=== PATIENT | male | born 1965 | race Caucasian/White ===

== ENCOUNTER 2017-01-22 13:46 | Emergency (ER) | payer SELFPAY ==
[~2017-01-22] VITALS: Ht 172.7 cm; Wt 99.8 kg
[2017-01-22 14:12] LABS: BASO % 0.6 % (0.0-1.0); EOS # 0.3 K/mm3 (0.0-0.50); EOS % 5.8 % (0.0-3.0); LARGE UNSTAINED CELL # 0.1 K/mm3 (0.0-0.4); LARGE UNSTAINED CELL % 1.9 % (0.0-4.0); LYMPH # 1.1 K/mm3 (1.5-4.5); LYMPH % 18.4 % (24.0-44.0); MEAN CORPUSCULAR HEMOGLOBIN 29.4 pg (27.0-33.0); MEAN CORPUSCULAR HGB CONC 34.4 g/dl (32.0-36.5); MEAN CORPUSCULAR VOLUME 85.5 fl (80.0-96.0); MONO # 0.3 K/mm3 (0.0-0.8); MONO % 5.9 % (0.0-5.0); NEUTROPHILS # 3.8 K/mm3 (1.8-7.7); NEUTROPHILS % 67.4 % (36.0-66.0); PLATELET COUNT, AUTOMATED 172 k/mm3 (150-450); RED CELL DISTRIBUTION WIDTH 13.3 % (11.5-14.5); WHITE BLOOD COUNT 5.6 K/mm3 (4.0-10.0)
[2017-01-22] MEDS ORDERED: ASPIRIN 81 MG CHEW TABLET PO ONE (14:30)
[2017-01-22] MEDS ORDERED: ASPIRIN 325 MG TAB PO ONE (14:30)
[2017-01-22] MEDS ORDERED: NS 500 ML IV ONE (14:30)
[2017-01-22 14:39] LABS: ANION GAP 7 MEQ/L (8-16); BLOOD UREA NITROGEN 13 MG/DL (7-18); CALCIUM LEVEL 8.4 MG/DL (8.5-10.1); CARBON DIOXIDE LEVEL 28 MEQ/L (21-32); CHLORIDE LEVEL 107 MEQ/L (98-107); CREATININE FOR GFR 0.86 MG/DL (0.70-1.30); GLOMERULAR FILTRATION RATE > 60.0 (>56); GLUCOSE, FASTING 96 MG/DL (70-105); POTASSIUM SERUM 3.9 MEQ/L (3.5-5.1); SODIUM LEVEL 142 MEQ/L (136-145)
[2017-01-22 14:46] LABS: THYROXINE (T4) 7.6 UG/DL (4.5-12.0)
[2017-01-22 19:30] VITALS: BP 126/68
--- NOTE | 2017-01-23 08:07 | REP ---
CHEST, TWO VIEWS: HISTORY: Chest pain. COMPARISON: None. FINDINGS: The superior mediastinal structures are midline. The cardiac silhouette is unremarkable in size, shape and position. The diaphragmatic surfaces of the lungs are regular and the costophrenic angles are clear. The pulmonary finnegan are clear. The imaged osseous structures are intact. IMPRESSION: There is no acute cardiopulmonary disease. Signed by Esteban Roth DO 01/23/2017 09:55 A
--- NOTE | 2017-01-23 14:43 | ECGEPIP ---
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
--- NOTE | 2017-01-24 06:36 | ECGEPIP ---
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
== END 2017-01-22 19:40 | disposition home or self-care (01) ==
LOC: M ED 14:25
DX: R07.89 Other chest pain (principal); R55 Syncope and collapse; F41.9 Anxiety disorder, unspecified; I10 Essential (primary) hypertension; E78.5 Hyperlipidemia, unspecified; F17.200 Nicotine dependence, unspecified, uncomplicated

== ENCOUNTER → 2018-07-08 | Outpatient (REF) | payer BC ==
[2018-07-08 17:59] LABS: BASO % 0.4 % (0.0-1.0); EOS # 0.1 10^3/uL (0.0-0.50); EOS % 2.2 % (0.0-3.0); HEMATOCRIT 46.5 % (42.0-52.0); HEMOGLOBIN 15.2 g/dl (13.5-17.5); IMMATURE GRANULOCYTE % 0.2 % (0-3.0); LYMPH # 1.3 10^3/uL (1.5-4.5); LYMPH % 27.2 % (24.0-44.0); MEAN CORPUSCULAR HEMOGLOBIN 28.3 pg (27.0-33.0); MEAN CORPUSCULAR HGB CONC 32.7 g/dl (32.0-36.5); MEAN CORPUSCULAR VOLUME 86.4 fl (80.0-96.0); MONO # 0.5 10^3/uL (0.0-0.8); MONO % 9.7 % (0.0-5.0); NEUTROPHILS % 60.3 % (36.0-66.0); PLATELET COUNT, AUTOMATED 192 10^3/uL (150-450); RED BLOOD COUNT 5.38 10^6/uL (4.30-6.10); RED CELL DISTRIBUTION WIDTH 13.7 % (11.5-14.5); WHITE BLOOD COUNT 4.9 10^3/uL (4.0-10.0)
[2018-07-08 18:23] LABS: ALBUMIN 3.8 GM/DL (3.2-5.2); ALBUMIN/GLOBULIN RATIO 0.93 (1.00-1.93); ALKALINE PHOSPHATASE 80 U/L (45-117); ALT/SGPT 64 U/L (12-78); ANION GAP 8 MEQ/L (8-16); AST/SGOT 27 U/L (7-37); BILIRUBIN,TOTAL 0.6 MG/DL (0.2-1.0); BLOOD UREA NITROGEN 14 MG/DL (7-18); CALCIUM LEVEL 8.5 MG/DL (8.5-10.1); CARBON DIOXIDE LEVEL 28 MEQ/L (21-32); CHLORIDE LEVEL 103 MEQ/L (98-107); CHOLESTEROL LEVEL 138 MG/DL (<200); CHOLESTEROL RISK RATIO 4.058 (<5); CREATININE FOR GFR 0.91 MG/DL (0.70-1.30); GLOMERULAR FILTRATION RATE > 60.0 (>56); GLUCOSE, FASTING 91 MG/DL (70-100); HDL CHOLESTEROL 34 MG/DL (>40); LDL CHOLESTEROL 86 MG/DL (<100); NON-HDL-C 104 MG/DL; POTASSIUM SERUM 4.3 MEQ/L (3.5-5.1); SODIUM LEVEL 139 MEQ/L (136-145); TOTAL PROTEIN 7.9 GM/DL (6.4-8.2); TRIGLYCERIDES LEVEL 89 MG/DL (<150)
== END ==
LOC: M SFHCADAM 09:25
DX: I10 Essential (primary) hypertension (principal); E66.01 Morbid (severe) obesity due to excess calories; E78.2 Mixed hyperlipidemia; R53.82 Chronic fatigue, unspecified
CPT/HCPCS: 84443

== ENCOUNTER → 2019-01-19 | Outpatient (CLI) | payer BC ==
--- NOTE | 2019-01-19 18:59 | ECHO ---
DATE OF PROCEDURE: 01/19/2019 REFERRING PROVIDER: Brittnee Spencer Physician Blow Mold Technician INDICATION: Generalized edema. HEIGHT: 68 inches WEIGHT: 232 pounds 2D MEASUREMENTS: Ventricular septum: 1.21 cm Posterior wall: 1.26 cm Left ventricle diastole: 6.5 cm Left atrium: 4.7 cm Aortic root: 3.5 cm Inferior vena cava: 1.8 cm with more than 50% respiratory variation DOPPLER MEASUREMENTS: Aortic valve velocity: 109 cm/s LVOT velocity: 94.6 cm/s LVOT VTI: 21.6 cm Mitral E velocity: 77.1 cm/s Mitral A velocity: 63.5 cm/s Trace tricuspid regurgitation. Estimated right ventricle systolic pressure: 16 mmHg MITRAL ANNULAR TISSUE DOPPLER: E prime septal: 7.39 cm/s E prime lateral: 11.7 cm/s DESCRIPTION: Rhythm was sinus. This was a moderately technically difficult echocardiogram. This was a 2D, M-mode, color flow Doppler and pulse wave Doppler examination and included mitral annular tissue Doppler. CONCLUSIONS: 1. Moderate mixed eccentric/concentric left ventricle hypertrophy with mild left ventricle diltation. Normal regional left ventricular (LV) wall motion and wall thickening. Left ventricle systolic function at the lower limits of normal. Left ventricular ejection fraction (LVEF) 50% by visual estimate. Normal LV diastolic function. 2. Moderate left atrial dilatation. 3. Mild mitral annular calcification. No mitral regurgitation. 4. Suggestive of central venous pressure of 5-10 mmHg. 5. No pericardial effusion.
== END ==
LOC: M CARPUL 08:53
PROVIDERS: ATTEND Physician Assistant Medical
DX: R60.1 Generalized edema (principal); I77.89 Other specified disorders of arteries and arterioles; I51.7 Cardiomegaly

== ENCOUNTER → 2019-02-16 | Outpatient (CLI) | payer BC ==
--- NOTE | 2019-02-20 19:33 | SLEEPHOME ---
DATE OF PROCEDURE: 02/16/2019 ORDERED BY: FLORA Moore Diagnostic home sleep testing was performed due to concern for the obstructive sleep apnea syndrome in this patient with a history of excessive somnolence and nonrestorative sleep who has comorbidities of hypertension. For testing a nocturnal T3 respiratory monitoring device was used. Continuous record was made of pulse, oxygen saturation, airflow, chest, abdominal strain and body position. 10 hours and 59 minutes of data were reviewed. There were 6 hours and 42 minutes marked as time in bed. During the interval marked time in bed, there were 46 respiratory events identified of 10 seconds in duration or greater for a respiratory event index of 6.9. The events were primarily obstructive. Baseline pulse rate 63 beats per minute, pulse rate ranged 51-84. Baseline saturation 93%. Saturations fell to 88%. Testing was performed in both the supine and nonsupine positions. Respiratory events were more common in the supine posture. IMPRESSION: Abnormal home sleep testing with repetitive respiratory events and oxygen desaturations to 88% with a respiratory event index of 6.9 is consistent with the obstructive sleep apnea syndrome. RECOMMENDATIONS: Sleep position retraining for avoidance of the supine posture may be helpful. Should the patient's symptoms persist, referral back to the sleep disorder center for pressure titration could be considered.
== END ==
LOC: M SLEEP HO 08:43
PROVIDERS: ATTEND Nurse Practitioner Family
DX: R06.83 Snoring (principal)

== ENCOUNTER → 2019-04-12 | Outpatient (CLI) | payer BC | LOC: M ADAMS 08:07 | PROVIDERS: ATTEND Physician Assistant Medical | DX: J44.9 Chronic obstructive pulmonary disease, unspecified (principal) ==

== ENCOUNTER → 2019-06-14 | Outpatient (REF) | payer BC ==
[2019-06-14 13:59] LABS: BASO % 0.3 % (0.0-1.0); EOS # 0.2 10^3/uL (0.0-0.5); EOS % 2.6 % (0.0-3.0); HEMOGLOBIN 15.1 g/dl (13.5-17.5); LYMPH # 1.3 10^3/uL (1.5-5.0); LYMPH % 22.4 % (24.0-44.0); MEAN CORPUSCULAR HEMOGLOBIN 29.7 pg (27.0-33.0); MEAN CORPUSCULAR HGB CONC 33.6 g/dl (32.0-36.5); MEAN CORPUSCULAR VOLUME 88.4 fl (80.0-96.0); MONO # 0.5 10^3/uL (0.0-0.8); MONO % 8.6 % (0.0-5.0); NEUTROPHILS # 3.8 10^3/uL (1.5-8.5); NEUTROPHILS % 65.6 % (36.0-66.0); PLATELET COUNT, AUTOMATED 160 10^3/uL (150-450); RED BLOOD COUNT 5.09 10^6/uL (4.30-6.10); WHITE BLOOD COUNT 5.8 10^3/uL (4.0-10.0)
[2019-06-14 14:21] LABS: ALT/SGPT 50 U/L (12-78); BILIRUBIN,TOTAL 0.7 MG/DL (0.2-1.0); BLOOD UREA NITROGEN 11 MG/DL (7-18); CALCIUM LEVEL 9.1 MG/DL (8.5-10.1); CARBON DIOXIDE LEVEL 30 MEQ/L (21-32); CHLORIDE LEVEL 106 MEQ/L (98-107); CHOLESTEROL LEVEL 138 MG/DL (<200); CHOLESTEROL RISK RATIO 3.285 (<5); CREATININE FOR GFR 0.73 MG/DL (0.70-1.30); GLOMERULAR FILTRATION RATE > 60.0 (>56); GLUCOSE, FASTING 90 MG/DL (70-100); HDL CHOLESTEROL 42 MG/DL (>40); LDL CHOLESTEROL 83 MG/DL (<100); NON-HDL-C 96 MG/DL; POTASSIUM SERUM 4.7 MEQ/L (3.5-5.1); SODIUM LEVEL 140 MEQ/L (136-145); TOTAL PROTEIN 7.2 GM/DL (6.4-8.2); TRIGLYCERIDES LEVEL 63 MG/DL (<150)
== END ==
LOC: M SFHCADAM 08:00
PROVIDERS: ATTEND Physician Assistant Medical
DX: E78.2 Mixed hyperlipidemia (principal); E66.01 Morbid (severe) obesity due to excess calories; I10 Essential (primary) hypertension

== ENCOUNTER → 2019-06-14 | Outpatient (REF) | payer BC | LOC: M SFHCPLAZ 18:34 | PROVIDERS: ATTEND Dermatology | DX: D23.39 Other benign neoplasm of skin of other parts of face (principal); L72.3 Sebaceous cyst ==

== ENCOUNTER → 2019-10-31 | Outpatient (REF) | payer BC | LOC: M LAB REF 09:25 | PROVIDERS: ATTEND Dermatology | DX: L72.0 Epidermal cyst (principal) ==

== ENCOUNTER → 2019-12-03 | Outpatient (REF) | payer BC | LOC: M LAB REF 18:47 | PROVIDERS: ATTEND Dermatology | DX: D49.2 Neoplasm of unspecified behavior of bone, soft tissue, and skin (principal) ==

== ENCOUNTER → 2020-01-22 | Outpatient (CLI) | payer BC ==
[~2020-01-22] MED LIST: METHACHOLINE KIT (J7674) INH ONE
--- NOTE | 2020-01-22 09:08 | PFTRPT ---
Height: 68.00 Inches Weight: 240.00 Lbs BSA: 2.21 Diagnosis: R06.02 DATE OF PROCEDURE: 01/22/2020 ORDERED BY: Dr. Swan INTERPRETATION: Study of excellent technical quality. Under protocol, methacholine was administered. At a dose of 0.25 mg or 1.375 CDUs, a 21% decline in the FEV1 was noted. PC of 0.2 is significant. Flow rates did return to baseline post bronchodilator administration. IMPRESSION: Positive methacholine challenge study. MTDD
== END ==
LOC: M CARPUL 07:48
PROVIDERS: ATTEND Internal Medicine Pulmonary Disease
DX: R06.02 Shortness of breath (principal)
CPT/HCPCS: 94070; J7674

== ENCOUNTER → 2020-01-31 | Outpatient (CLI) | payer BC ==
--- NOTE | 2020-02-01 08:00 | REP ---
Clinical: Shortness of breath. Technique: Axial noncontrast images from the thoracic inlet to the upper abdomen with coronal and sagittal re-formations. Comparison: None. Findings: Minimal fibroatelectatic changes at the lingula noted. Lung finnegan are otherwise well aerated and clear. No consolidation, nodule or mass lesion. No pleural effusion. No pneumothorax. Tracheobronchial tree is patent. No obvious adenopathy. Early atherosclerotic changes to the thoracic aorta and coronary arteries suggested. No aortic aneurysm. No cardiomegaly or pericardial effusion. Musculoskeletal structures demonstrate age-related changes without focal osseous abnormality. Impression: 1. Minimal chronic-appearing fibroatelectatic changes at the lingula consistent with scarring. 2. No acute mediastinal or pleuroparenchymal process appreciated. Electronically Signed by Amol Polo MD 02/01/2020 07:51 A
== END ==
LOC: M RAD 08:47
PROVIDERS: ATTEND Internal Medicine Pulmonary Disease
DX: R06.02 Shortness of breath (principal)

== ENCOUNTER → 2020-03-17 | Outpatient (CLI) | payer BC | LOC: M RAD 08:25 | PROVIDERS: ATTEND Physician Assistant Medical | DX: R51 Headache (principal); Z53.9 Procedure and treatment not carried out, unspecified reason ==

== ENCOUNTER → 2020-04-01 | Outpatient (CLI) | payer BC ==
[~2020-04-01] MED LIST changes: +ALBU8.5H INH; +AMLO1TAB24 PO; +BREO1INH3 INH; +DOXY100C37 PO; +HYDR25TAB PO; +LOSA100T50 PO; -METHACHOLINE KIT (J7674) INH ONE; +MULTCAP PO; +TOPI50TA9 PO
[2020-04-01 14:50] LABS: HEMATOCRIT 46.7 % (42.0-52.0); HEMOGLOBIN 15.5 g/dl (13.5-17.5); MEAN CORPUSCULAR HEMOGLOBIN 28.1 pg (27.0-33.0); MEAN CORPUSCULAR HGB CONC 33.2 g/dl (32.0-36.5); MEAN CORPUSCULAR VOLUME 84.8 fl (80.0-96.0); PLATELET COUNT, AUTOMATED 186 10^3/uL (150-450); RED BLOOD COUNT 5.51 10^6/uL (4.30-6.10)
[2020-04-01 15:12] LABS: ALBUMIN 3.7 GM/DL (3.2-5.2); ALT/SGPT 56 U/L (12-78); BILIRUBIN,TOTAL 0.5 MG/DL (0.2-1.0); BLOOD UREA NITROGEN 13 MG/DL (7-18); CALCIUM LEVEL 8.8 MG/DL (8.5-10.1); CARBON DIOXIDE LEVEL 28 MEQ/L (21-32); CHLORIDE LEVEL 106 MEQ/L (98-107); GLOMERULAR FILTRATION RATE > 60.0 (>56); GLUCOSE, FASTING 98 MG/DL (70-100); POTASSIUM SERUM 3.9 MEQ/L (3.5-5.1); SODIUM LEVEL 139 MEQ/L (136-145); TOTAL PROTEIN 7.6 GM/DL (6.4-8.2)
[2020-04-02 12:02] LABS: HIV 1&2 SCREEN CENTAUR NEGATIVE (NEGATIVE)
--- NOTE | 2020-04-03 14:40 | ECGEPIP ---
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 Somewhat low voltages with slow precordial R wave progression, incomplete RBBB a and persistent S waves V5 and V6; body habitus versus pulmonary disease Inferior T wave flattening Increased rate but otherwise unchanged from 01/22/17. Electronically Signed on 04-03-2020 14:40:01 EDT by Manny Newberry
== END ==
LOC: M LAB 14:21
PROVIDERS: ATTEND Dermatology
DX: Z01.818 Encounter for other preprocedural examination (principal)

== ENCOUNTER → 2020-04-05 | Outpatient (CLI) | payer BC | LOC: M LABSMTC 11:51 | PROVIDERS: ATTEND Anesthesiology | DX: Z01.818 Encounter for other preprocedural examination (principal); Z11.59 Encounter for screening for other viral diseases | CPT/HCPCS: C9803; U0003 ==

== ENCOUNTER → 2020-10-23 | Outpatient (REF) | payer OTHER ==
[2020-10-23 13:44] LABS: BASO % 0.3 % (0.0-1.0); EOS # 0.1 10^3/uL (0.0-0.5); EOS % 1.6 % (0.0-3.0); LYMPH # 1.4 10^3/uL (1.5-5.0); LYMPH % 22.7 % (24.0-44.0); MEAN CORPUSCULAR HEMOGLOBIN 28.3 pg (27.0-33.0); MEAN CORPUSCULAR HGB CONC 32.6 g/dl (32.0-36.5); MEAN CORPUSCULAR VOLUME 86.8 fl (80.0-96.0); MONO # 0.6 10^3/uL (0.0-0.8); MONO % 9.4 % (0.0-5.0); NEUTROPHILS # 4.1 10^3/uL (1.5-8.5); NEUTROPHILS % 65.5 % (36.0-66.0); PLATELET COUNT, AUTOMATED 186 10^3/uL (150-450); WHITE BLOOD COUNT 6.2 10^3/uL (4.0-10.0)
[2020-10-23 14:14] LABS: ALBUMIN 4.1 GM/DL (3.2-5.2); ALT/SGPT 53 U/L (12-78); BILIRUBIN,TOTAL 0.4 MG/DL (0.2-1.0); BLOOD UREA NITROGEN 15 MG/DL (7-18); CALCIUM LEVEL 9.7 MG/DL (8.5-10.1); CARBON DIOXIDE LEVEL 31 MEQ/L (21-32); CHLORIDE LEVEL 104 MEQ/L (98-107); CHOLESTEROL LEVEL 167 MG/DL (<200); CHOLESTEROL RISK RATIO 3.795 (<5); GLOMERULAR FILTRATION RATE > 60.0 (>56); GLUCOSE, FASTING 84 MG/DL (70-100); HDL CHOLESTEROL 44 MG/DL (>40); LDL CHOLESTEROL 93 MG/DL (<100); NON-HDL-C 123 MG/DL; POTASSIUM SERUM 4.3 MEQ/L (3.5-5.1); SODIUM LEVEL 141 MEQ/L (136-145); TOTAL PROTEIN 7.1 GM/DL (6.4-8.2); TRIGLYCERIDES LEVEL 148 MG/DL (<150)
== END ==
LOC: M SFHCADAM 10:05
PROVIDERS: ATTEND Physician Assistant Medical
DX: I10 Essential (primary) hypertension (principal); E66.01 Morbid (severe) obesity due to excess calories; E78.2 Mixed hyperlipidemia

== ENCOUNTER → 2020-12-26 | Outpatient (CLI) | payer OTHER ==
[~2020-12-26] MED LIST changes: +HYDR-3490 PO; -HYDR25TAB PO
--- NOTE | 2020-12-26 10:40 | ECGEPIP ---
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 Minor T wave abnormalities III and aVF. No change from 04/01/20. Electronically Signed on 12-26-2020 10:39:44 EDT by Manny Newberry
== END ==
LOC: M EKG 08:25
DX: Z01.810 Encounter for preprocedural cardiovascular examination (principal)

== ENCOUNTER → 2021-02-25 | Outpatient (REF) | payer OTHER ==
[2021-02-25 14:50] LABS: BLOOD UREA NITROGEN 14 MG/DL (7-18); CALCIUM LEVEL 9.3 MG/DL (8.5-10.1); CARBON DIOXIDE LEVEL 31 MEQ/L (21-32); CHLORIDE LEVEL 102 MEQ/L (98-107); CREATININE FOR GFR 0.84 MG/DL (0.70-1.30); GLOMERULAR FILTRATION RATE > 60.0 (>56); GLUCOSE, FASTING 110 MG/DL (70-100); SODIUM LEVEL 140 MEQ/L (136-145)
== END ==
LOC: M LABDRWAD 12:51
PROVIDERS: ATTEND Orthopaedic Surgery
DX: Z01.812 Encounter for preprocedural laboratory examination (principal)

== ENCOUNTER → 2021-03-19 | Outpatient (REF) | payer OTHER ==
[~2021-03-19] MED LIST changes: +BUDE10.2 INH; +CHLO125TA PO; -DOXY100C37 PO; +DOXY1CAP62 PO
[2021-03-19 17:53] LABS: ALT/SGPT 58 U/L (12-78); BILIRUBIN,TOTAL 0.7 MG/DL (0.2-1.0); BLOOD UREA NITROGEN 13 MG/DL (7-18); CALCIUM LEVEL 9.5 MG/DL (8.5-10.1); CARBON DIOXIDE LEVEL 30 MEQ/L (21-32); CHLORIDE LEVEL 102 MEQ/L (98-107); CREATININE FOR GFR 0.84 MG/DL (0.70-1.30); GLOMERULAR FILTRATION RATE > 60.0 (>56); GLUCOSE, FASTING 87 MG/DL (70-100); POTASSIUM SERUM 3.8 MEQ/L (3.5-5.1); SODIUM LEVEL 139 MEQ/L (136-145); TOTAL PROTEIN 7.3 GM/DL (6.4-8.2)
[2021-03-19 19:31] LABS: BASO % 0.3 % (0.0-1.0); EOS # 0.1 10^3/uL (0.0-0.5); EOS % 1.5 % (0.0-3.0); HEMATOCRIT 45.2 % (42.0-52.0); HEMOGLOBIN 15.2 g/dl (13.5-17.5); LYMPH # 1.4 10^3/uL (1.5-5.0); LYMPH % 19.4 % (24.0-44.0); MEAN CORPUSCULAR HEMOGLOBIN 28.5 pg (27.0-33.0); MEAN CORPUSCULAR HGB CONC 33.6 g/dl (32.0-36.5); MEAN CORPUSCULAR VOLUME 84.6 fl (80.0-96.0); MONO # 0.7 10^3/uL (0.0-0.8); NEUTROPHILS # 5.1 10^3/uL (1.5-8.5); NEUTROPHILS % 69.4 % (36.0-66.0); PLATELET COUNT, AUTOMATED 219 10^3/uL (150-450); RED BLOOD COUNT 5.34 10^6/uL (4.30-6.10); WHITE BLOOD COUNT 7.4 10^3/uL (4.0-10.0)
== END ==
LOC: M SFHCADAM 14:00
PROVIDERS: ATTEND Family Medicine
DX: Z01.818 Encounter for other preprocedural examination (principal)

== ENCOUNTER → 2021-03-19 | Outpatient (REF) | payer OTHER ==
[2021-03-19 17:59] LABS: RHEUMATOID FACTOR QUANT < 10.0 IU/ML (<15.0); TOTAL 25(OH) VITAMIN D 19.8 NG/ML (30.0-100.0)
[2021-03-21 11:08] LABS: ANTINUCLEAR ANTIBODIES DIRECT Negative (Negative)
== END ==
LOC: M LABDRWAD 16:57
PROVIDERS: ATTEND Psychiatry & Neurology Neurology
DX: R51.9 Headache, unspecified (principal)

== ENCOUNTER → 2021-03-25 | Outpatient (CLI) | payer OTHER ==
[~2021-03-25] MED LIST changes: +AMOX500C PO; +ISOVUE-370 76% 100ML VIAL As Ordered ONE; +OXYC1TAB23 PO
--- NOTE | 2021-03-25 16:22 | REP ---
INDICATION: ACQUIRED DEFORMITY OF NOSE. Scar condition and fibrosis of skin. Rhinophyma. COMPARISON: None. TECHNIQUE: Helical scanning is acquired and 3 mm axial images are re-formatted. Coronal and sagittal MPR images are generated. postcontrast images are acquired. The contrast enhancement dose is 75 mL of intravenous Isovue 370. FINDINGS: The frontal sinuses are clear. There is no evidence of mucosal thickening or opacification the ethmoid sinus air cells. Sphenoid sinuses are clear. Mastoid aeration is normal and symmetric. There is a 1 cm mucous retention cyst in the floor of the right maxillary sinus and minimal mucosal thickening is seen in the floor of the left maxillary sinus. Patient appears to be status post bilateral uncinectomy. Nasal turbinates soft tissues are unremarkable. The bony nasal septum deviates in a bowing fashion leftward anteriorly. There is a tiny fenestration in the nasal septum anteroinferior Alice. The cartilaginous portion of the inferior anterior nasal septum contains a linear calcification. There is evidence of a soft tissue asymmetry or defect in the rim of the left nasal ala. The nasal bone appears intact. The inferior maxillary spine is intact. No mandibular or maxillary bony destructive lesion is seen. Orbital margins are intact. No intraorbital abnormality is seen. The visualized intracranial structures are unremarkable. The vascular structures show normal enhancement. No abnormal enhancement pattern is appreciated. There is evidence of diffuse dermal thickening in the malar and orbital facial skin. IMPRESSION: Mild leftward septal deviation without a septal beak. Possible small septal fenestration. Cartilaginous nasal septal calcification. Asymmetry or soft tissue deficit in the left nasal ala. Diffuse dermal thickening. Mild mucosal thickening in the maxillary sinuses bilaterally. <Electronically signed by Marcus Blank > 03/25/21 [id number]
== END ==
LOC: M RAD 15:25
PROVIDERS: ATTEND Plastic Surgery Surgery of the Hand
DX: J34.2 Deviated nasal septum (principal); L71.1 Rhinophyma; M95.0 Acquired deformity of nose; L90.5 Scar conditions and fibrosis of skin
CPT/HCPCS: 70488; Q9967

== ENCOUNTER → 2021-03-26 | Outpatient (CLI) | payer OTHER ==
[~2021-03-26] MED LIST changes: +DOXY-443 PO; -DOXY1CAP62 PO; -ISOVUE-370 76% 100ML VIAL As Ordered ONE; +LOSA100T45 PO; -LOSA100T50 PO
== END ==
LOC: M LABSMTC 11:56
PROVIDERS: ATTEND Anesthesiology
DX: Z01.812 Encounter for preprocedural laboratory examination (principal)

== ENCOUNTER 2021-03-31 05:59 | Observation (INO) | payer OTHER ==
[~2021-03-31] VITALS: Ht 172.7 cm; Wt 117.6 kg
[~2021-03-31 05:59] MED LIST changes: -AMOX500C PO; -DOXY-443 PO; +DOXY1CAP62 PO; -LOSA100T45 PO; +LOSA100T50 PO; -OXYC1TAB23 PO
[2021-03-31] MEDS ORDERED: ceFAZolin SOD 1 GM in D5W MINI-BAG PLUS 50 ML IV ONE (06:00)
[2021-03-31] MEDS ORDERED: LR 1,000 ML IV ONE (06:00)
[2021-03-31] MEDS ORDERED: POVIDONE-IODINE 5% OPHTH PREP SOL 30ML As Ordered ONE (07:14)
[2021-03-31] MEDS ORDERED: LIDOCAINE W/EPINEPHRINE 1% 20ML VIAL As Ordered ONE (07:18)
[2021-03-31] MEDS ORDERED: ONDANSETRON 4MG/2ML VIAL As Ordered ONE ×2 (07:20→13:32)
[2021-03-31] MEDS ORDERED: propofoL 200 MG/20 ML VIAL As Ordered ONE ×2 (07:20→08:56)
[2021-03-31] MEDS ORDERED: ROCURONIUM BROMIDE 50 MG/5 ML VIAL As Ordered ONE ×2 (07:20→12:38)
[2021-03-31] MEDS ORDERED: dexameTHASONE 4 MG/ML 1ML VIAL (J1100 PER 1MG) As Ordered ONE ×2 (07:20→08:10)
[2021-03-31] MEDS ORDERED: MIDAZOLAM INJ 2MG/2ML VIAL (J2250 PER 1MG) As Ordered ONE (07:21)
[2021-03-31] MEDS ORDERED: fentaNYL 250 MCG/5 ML INJECTION (J3010) As Ordered ONE (07:21)
[2021-03-31] MEDS ORDERED: OXYMETAZOLINE 0.05% NASAL SPRAY (AFRIN) ONE (07:25)
[2021-03-31] MEDS ORDERED: ceFAZolin SOD 2 GM in IV 1 EA IV ONE (07:25)
[2021-03-31] MEDS ORDERED: METHYLENE BLUE 0.5% (5MG/ML) 10 ML AMP (PROVAYBLUE) As Ordered ONE (07:37)
[2021-03-31] MEDS ORDERED: EPINEPHrine INJ 1 MG/ML 1ML AMP As Ordered ONE (07:57)
[2021-03-31] MEDS ORDERED: LACRILUBE (AKWA TEARS) OPHTH OINT 3.5 GM As Ordered ONE (08:06)
[2021-03-31] MEDS ORDERED: ceFAZolin 1GM VIAL (J0690 PER 500MG) As Ordered ONE (08:20)
[2021-03-31] MEDS ORDERED: BACITRACIN OINTMENT 30GM TUBE As Ordered ONE ×2 (08:24→10:06)
[2021-03-31] MEDS ORDERED: SUCCINYLCHOLINE 100 MG/5 ML SYRINGE (J0330) As Ordered ONE (08:55)
[2021-03-31] MEDS: CHLORTHALIDONE 25 MG TAB PO SCH (09:00)
[2021-03-31] MEDS ORDERED: ACETAMINOPHEN 1000MG 100ML IV BTL (OFIRMEV) (J0131 PER 10MG) As Ordered ONE ×2 (09:04→12:41)
[2021-03-31] MEDS ORDERED: HYDROmorphone HCL 2 MG/ML 1ML VIAL (J1170) As Ordered ONE ×2 (09:05→12:41)
[2021-03-31] MEDS ORDERED: SUGAMMADEX SODIUM 500 MG/5 ML VIAL (BRIDION) As Ordered ONE ×2 (09:14→12:41)
[2021-03-31] MEDS ORDERED: ALBUTEROL 6.7GM INHALER **FOR ANES. CART/OMNICELL ONLY As Ordered ONE (10:43)
--- NOTE | 2021-03-31 10:54 | POST-OPPD ---
Postoperative Procedure Note Date Of Procedure: Mar 31, 2021 PREOPERATIVE DIAGNOSIS: Left nostril symptomatic contracted scar. Asymmetry. POSTOPERATIVE DIAGNOSIS: same PROCEDURE: Reconstruction of left nostril with rotation flap. SURGEON: Dr Maldonado IRONING PLEATER: Dr Louis FINDINGS: Asymmetry left nostril, obstruction left nostril SPECIMENS: none ESTIMATED BLOOD LOSS: 5 cc ANESTHESIA: General REPLACED: none DRAINS: none COMPLICATIONS: none POSTOPERATIVE CONDITION: stable DELILAH MALDONADO DO Mar 31, 2021 10:54
--- NOTE | 2021-03-31 10:54 | ROOPDOC ---
[facility] Report Of Operation Report of Operation DATE OF PROCEDURE: 03/31/21 PREOPERATIVE DIAGNOSIS: Left nostril symptomatic contracted scar. Asymmetry. POSTOPERATIVE DIAGNOSIS: same PROCEDURE: Reconstruction of left nostril with rotation flap. 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 Last treatment was 1 year ago. Patient developed contracture on the left side which resulted in asymmetry between nostrils. He also has obstruction going on left nostril which protrudes from lateral wall of the nostril. Patient is scheduled for left nostril reconstruction, correction of asymmetry with flap and possible cartilaginous graft from left ear. Risk, benefits, and alternatives discussed with patient in details. Dr. Louis from ENT is present to assist with elimination of intranasal obstruction. Informed consent was obtained from patient in preop holding area. Patient brought into the operating room, placed in supine position, preoperative antibiotics were given, and general anesthesia is induced. He was prepped and draped in the usual sterile fashion. Left nostril was packed with pledgets soaked in Afrin. We started our procedure by outlining the nasal aesthetic units. The contracted scar on the left corresponds with the lower lateral sidewall border. Incision carried out along that scar. Careful dissection done using with iris scissors to raise the skin flap inferiorly and superiorly. Significant amount of scar tissue was encountered hemostasis was obtained using electrocautery. Lateral cartilage was identified. It was pulled superiorly due to the scar contracture. We used careful dissection to free up the cartilaginous tissue and we were able to release it to its original location. Skin deficit was measured and the nasolabial flap superiorly based was designed to fill-in for a skin deficit which was 1.3 cm. Nasolabial flap was raised using a knife and electrocautery and scissors. It was set in place in a defect and covered the whole aesthetic subunit of the left nostril starting at the nasal edge . The internal obstruction was corrected when the cartilaginous structures were released. Mucosa is completely intact, no resection was necessary. Flap was set in place without tension. It was sutured with 5-0 Monocryl sutures interrupted fashion. Nasolabial port was closed with 4-0 Vicryl deep sutures followed by interrupted 4-0 Monocryl sutures for the skin. Merisel packing was used for left nostril and bacitracin ointment for all the incisions. Patient extubated in operating room, and transferred to recovery room in stable condition completely awake. Dr. Louis was instrumental during this procedure in assisting for proper exposure and assessment of the nasal obstruction and assisting to completely eliminate it. DELILAH MALDONADO DO Mar 31, 2021 10:54
[2021-03-31] MEDS ORDERED: OXYC1TAB23 PO (10:59)
[2021-03-31] MEDS ORDERED: AMOX500C PO (10:59)
[2021-03-31] MEDS ORDERED: HYDROMORPHONE HCL 0.5 MG/ 0.5 ML SYRINGE (J1170 PER 1) IV PRN (11:15)
[2021-03-31] MEDS ORDERED: LR 1,000 ML IV SCH (11:15)
[2021-03-31] MEDS ORDERED: fentaNYL 100 MCG/2 ML INJECTION (J3010) IV PRN (11:15)
[2021-03-31] MEDS ORDERED: ONDANSETRON 4MG/2ML VIAL IV PRN (11:15)
[2021-03-31] MEDS ORDERED: oxyCODONE 5MG TAB PO PRN (11:15)
[2021-03-31] MEDS ORDERED: MOM 30ML SUSPENSION UDC PO PRN (13:45)
[2021-03-31] MEDS ORDERED: ACETAMINOPHEN TAB 650MG DOSE (2X325MG) PO PRN (13:45)
--- NOTE | 2021-03-31 14:02 | HPEPDOC ---
[facility] Medical History & Physical Date of Admission Mar 31, 2021 Date of Service: Mar 31, 2021 History and Physical Chief complaint: Contacted by anesthesia and plastic surgery after patient was hypoxic postoperatively History of present illness: Patient is a 55-year-old male with PMHx of HTN, JYOTI on CPAP, Chronic L shoulder pain, Chronic headache, Obesity, GERD, who presented to [facility] for elective procedure with Lasix surgery. Patient was scheduled and has completed a rhinoplasty after he had reported some obstruction on the left side. Patients procedure had been completed uneventfully. However, postoperatively patient was found to be hypoxic and hospitalist service was contacted for further evaluation. Patient does use a CPAP device at home. However, given his recent rhinoplasty he was advised to stop the use of it temporarily. Currently patient denies any headache, nausea, vomiting, chest pain, shortness breath, palpitations, cough, abdominal pain, patient diarrhea, or urinary discomfort. Patient denies any fevers or chills over the last few days. Reports that his appetite is fairly normal and is unsure of any changes in his weight. 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 Review of Systems: 10 point review of systems complete, all negative otherwise stated in HPI Physical exam: - Vitals: BP [139/71], HR [67], RR [20], Sat [96%NC2L], Temp [97.1F] - General: Lying in bed, No acute distress, Speaking in full sentences, AAOx3 - HEENT: NC, AT, PERRLA, EOMI - CVS: RRR, +S1S2 - Lungs: Fair air entry bilaterally, No appreciable wheezing / rales / rhonchi - Abdomen: Soft, Non-distended, Non-tender - Extremities: No lower extremity edema, No calf tenderness - Neuro: No focal motor or sensory deficit - Skin: No visible rashes Labs: See below Imaging: See below EKG: See below Assessment and Plan: Acute hypoxic respiratory failure - Patient was found to be hypoxic postoperatively requiring 2 L of supplemental oxygen - Patient does not reveal any signs of fluid overload or any adventitious lung sounds - Will check chest x-ray, EKG, cardiac markers - Will continue with supplemental oxygen - Will start JYOTI protocol - Patient is been advised to avoid the use of CPAP temporarily (re: Rhinoplasty) Rhinoplasty - Plastic surgery on consultation; appreciate their input HTN - BP well controlled - c/w Chlorthalidone, Losartan, Amlodipine with hold parameters JYOTI on CPAP - Will hold CPAP (re: Rhinoplasty) - Will start JYOTI protocol Chronic L shoulder pain - c/w Tylenol PRN Chronic headache - c/w Tylenol PRN Obesity - BMI of 38.7 - Complicating medical care GERD - Currently not on medications DVT prophylaxis - Will start TEDs / Sequentials Vital Signs Vital Signs Date Time Temp Pulse Resp B/P (MAP) Pulse Ox O2 Delivery O2 Flow Rate FiO2 03/31/21 13:40 65 20 146/86 (106) 98 Nasal Cannula 2.0 03/31/21 13:25 96.9 03/31/21 12:10 100 Home Medications Scheduled Amlodipine Besylate (Amlodipine Besylate) 5 Mg Tablet, 5 MG PO DAILY Amoxicillin (Amoxicillin) 500 Mg Capsule, 500 MG PO BID Budesonide/Formoterol Fumarate (Budesonide-Formoterol 160-4.5) 10.2 Gm Hfa.aer.ad, 10.2 GM INH BID Chlorthalidone (Chlorthalidone) 25 Mg Tablet, 25 MG PO DAILY Doxycycline Monohydrate (Doxycycline Monohydrate) 100 Mg Capsule, 100 MG PO BID Losartan Potassium (Losartan Potassium) 100 Mg Tablet, 100 MG PO DAILY Multivitamin (Multivitamins) 1 Each Capsule, 1 CAP PO DAILY Scheduled PRN Albuterol Sulfate (Albuterol Sulfate Hfa) 8.5 Gm Hfa.aer.ad, 2 PUFF INH PRN PRN for DYSPNEA Oxycodone HCl/Acetaminophen (Oxycodone-Acetaminophen 5-325) 1 Each Tablet, 1 TAB PO TIDP PRN for pain Topiramate (Topiramate) 50 Mg Tablet, 50 MG PO PRN PRN for MIGRAINE Allergies Coded Allergies: No Known Allergies (Unverified , 03/31/21) TUAN RIGGS MD Mar 31, 2021 14:02
[2021-03-31 14:20] LABS: HEMATOCRIT 43.3 % (42.0-52.0); HEMOGLOBIN 14.5 g/dl (13.5-17.5); MEAN CORPUSCULAR HEMOGLOBIN 28.7 pg (27.0-33.0); MEAN CORPUSCULAR HGB CONC 33.5 g/dl (32.0-36.5); MEAN CORPUSCULAR VOLUME 85.6 fl (80.0-96.0); PLATELET COUNT, AUTOMATED 144 10^3/uL (150-450); RED BLOOD COUNT 5.06 10^6/uL (4.30-6.10); WHITE BLOOD COUNT 6.6 10^3/uL (4.0-10.0)
[2021-03-31 14:30] VITALS: BP 147/90
--- NOTE | 2021-03-31 14:31 | REP ---
INDICATION: Hypoxia. COMPARISON: 01/22/2017 the only prior TECHNIQUE: Portable FINDINGS: The technique utilized in obtaining the radiograph has magnified the cardiac silhouette and accentuated the interstitial markings. The lung finnegan are markedly hypoexpanded further limiting the exam. No patchy opacities or pleural effusions seem to have developed. Cardiomegaly cannot be ruled out. The osseous structures appear to be stable. IMPRESSION: Markedly limited exam showing no evidence of acute cardiopulmonary disease, however, PA and lateral views of the chest recommended. <Electronically signed by Esteban Roth > 03/31/21 [id number]
[2021-03-31 14:43] LABS: ALBUMIN 3.6 GM/DL (3.2-5.2); ALT/SGPT 49 U/L (12-78); BILIRUBIN,TOTAL 0.4 MG/DL (0.2-1.0); BLOOD UREA NITROGEN 11 MG/DL (7-18); CALCIUM LEVEL 8.6 MG/DL (8.5-10.1); CARBON DIOXIDE LEVEL 26 MEQ/L (21-32); CHLORIDE LEVEL 105 MEQ/L (98-107); GLOMERULAR FILTRATION RATE > 60.0 (>56); GLUCOSE, FASTING 152 MG/DL (70-100); POTASSIUM SERUM 4.3 MEQ/L (3.5-5.1); SODIUM LEVEL 139 MEQ/L (136-145); TOTAL PROTEIN 7.1 GM/DL (6.4-8.2)
[2021-03-31 15:00] VITALS: BP 143/89
[2021-03-31] MEDS: amLODIPine 5 MG TAB PO SCH (15:23)
[2021-03-31] MEDS: LOSARTAN 50MG TABLET PO SCH (15:23)
[2021-03-31 15:30] LABS: CK-MB VALUE MASS 2.5 NG/ML (<3.6); CPK CREATINE PHOSPHOKINASE 104 U/L (39-308); TROPONIN I < 0.02 NG/ML (< 0.10)
--- NOTE | 2021-03-31 16:12 | REP ---
INDICATION: Hypoxia. COMPARISON: There lead today a portable exam TECHNIQUE: PA and lateral FINDINGS: The superior mediastinal structures are midline. The cardiac silhouette is unremarkable in size, shape, and position. The diaphragmatic surfaces of the lungs are regular, and the costophrenic angles are clear. The pulmonary finnegan are clear. The imaged osseous structures are intact. There is a curvilinear radiodensity over the left shoulder girdle and left upper lung field. The etiology of this radiodensity is unknown. It does, however, represent a change from the prior exam. IMPRESSION: There is no acute cardiopulmonary disease. <Electronically signed by Esteban Roth > 03/31/21 [id number]
[2021-03-31] MEDS: DOXYCYCLINE HYCLATE 100MG TABLET PO SCH (17:05)
[2021-03-31 17:30] VITALS: BP 145/90
[2021-03-31 18:55] VITALS: BP 146/91
[2021-03-31] MEDS: SYMBICORT 160/4.5MCG INHALER 6GM INH SCH (19:49)
[2021-03-31] MEDS: DOCUSATE SODIUM 100MG CAPSULE PO SCH (20:00)
[2021-03-31 22:00] VITALS: BP 152/87
[2021-04-01] MEDS: DOXYCYCLINE HYCLATE 100MG TABLET PO SCH (05:06)
--- NOTE | 2021-04-01 05:53 | ECGEPIP ---
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
[2021-04-01 06:00] VITALS: BP 149/88
[2021-04-01] MEDS: SYMBICORT 160/4.5MCG INHALER 6GM INH SCH (07:18)
[2021-04-01 07:32] LABS: EOS % 0.1 % (0.0-3.0); HEMATOCRIT 41.2 % (42.0-52.0); HEMOGLOBIN 13.5 g/dl (13.5-17.5); LYMPH # 1.2 10^3/uL (1.5-5.0); LYMPH % 13.3 % (24.0-44.0); MEAN CORPUSCULAR HEMOGLOBIN 28.1 pg (27.0-33.0); MEAN CORPUSCULAR HGB CONC 32.8 g/dl (32.0-36.5); MEAN CORPUSCULAR VOLUME 85.8 fl (80.0-96.0); MONO # 0.8 10^3/uL (0.0-0.8); MONO % 8.7 % (2.0-8.0); NEUTROPHILS # 6.7 10^3/uL (1.5-8.5); NEUTROPHILS % 77.6 % (36.0-66.0); PLATELET COUNT, AUTOMATED 164 10^3/uL (150-450); WHITE BLOOD COUNT 8.7 10^3/uL (4.0-10.0)
[2021-04-01 07:49] LABS: BLOOD UREA NITROGEN 11 MG/DL (7-18); CALCIUM LEVEL 8.8 MG/DL (8.5-10.1); CARBON DIOXIDE LEVEL 27 MEQ/L (21-32); CHLORIDE LEVEL 107 MEQ/L (98-107); CREATININE FOR GFR 0.72 MG/DL (0.70-1.30); GLOMERULAR FILTRATION RATE > 60.0 (>56); GLUCOSE, FASTING 98 MG/DL (70-100); SODIUM LEVEL 141 MEQ/L (136-145)
[2021-04-01] MEDS ORDERED: MULTIVITAMINS/MINERALS THERAP 1 TAB PO SCH (09:00)
[2021-04-01 09:01] VITALS: BP 145/86
[2021-04-01] MEDS: LOSARTAN 50MG TABLET PO SCH (09:01)
[2021-04-01] MEDS: DOCUSATE SODIUM 100MG CAPSULE PO SCH (09:01)
[2021-04-01] MEDS: CHLORTHALIDONE 25 MG TAB PO SCH (09:02)
[2021-04-01] MEDS: amLODIPine 5 MG TAB PO SCH (09:02)
--- NOTE | 2021-04-01 10:16 | DS.PDOC ---
Discharge Summary General Date of Admission Mar 31, 2021 at 13:45 Date of Discharge 04/01/2021 Discharge Summary PROCEDURES PERFORMED DURING STAY: Reconstruction of left nostril with rotation flap with Dr. Altagracia Christine on 03/31/2021 ADMITTING DIAGNOSES / DISCHARGE DIAGNOSES: s/p Acute hypoxic respiratory failure - likely 2/2 JYOTI and medications Rhinoplasty HTN JYOTI on CPAP Chronic L shoulder pain Chronic headache Obesity GERD DVT prophylaxis COMPLICATIONS/CHIEF COMPLAINT: Rhinophyma / Left Nasal Passage Obstruction / Scar correction HISTORY OF PRESENT ILLNESS: Patient is a 55-year-old male with PMHx of HTN, JYOTI on CPAP, Chronic L shoulder pain, Chronic headache, Obesity, GERD, who presented to [facility] for elective procedure with Lasix surgery. Patient was scheduled and has completed a rhinoplasty after he had reported some obstruction on the left side. Patients procedure had been completed uneventfully. However, postoperatively patient was found to be hypoxic and hospitalist service was contacted for further evaluation. Patient does use a CPAP device at home. However, given his recent rhinoplasty he was advised to stop the use of it temporarily. Currently patient denies any headache, nausea, vomiting, chest pain, shortness breath, palpitations, cough, abdominal pain, patient diarrhea, or urinary discomfort. Patient denies any fevers or chills over the last few days. Reports that his appetite is fairly normal and is unsure of any changes in his weight. Patient was seen and examined at the bedside this morning. He denies any chest pain, shortness breath, palpitations, nausea, vomiting, abdominal pain, diarrhea. Reports that he was able to sleep well at night. Saturations have remained within normal range. HOSPITAL COURSE: s/p Acute hypoxic respiratory failure - likely 2/2 JYOTI and medications - She is currently saturating well on room air - s/p supplemental oxygen - Physical is without any signs of fluid overload - Imaging reviewed - s/p JYOTI protocol - Patient is been advised to avoid the use of CPAP temporarily (re: Rhinoplasty) - Will have outpatient follow-up with her primary care provider and plastic surgery within the next 5 days Rhinoplasty - Plastic surgery on consultation; appreciate their input HTN - BP well controlled - c/w Chlorthalidone, Losartan, Amlodipine with hold parameters JYOTI on CPAP - Will hold CPAP (re: Rhinoplasty) - will be resumed when cleared by plastic surgery - c/w JYOTI protocol Chronic L shoulder pain - c/w Tylenol PRN Chronic headache - c/w Tylenol PRN Obesity - BMI of 38.7 - Complicating medical care GERD - Currently not on medications DVT prophylaxis - c/w TEDs / Sequentials DISCHARGE MEDICATIONS: Please see below. ALLERGIES: Please see below. PHYSICAL EXAMINATION ON DISCHARGE: Vitals (See below) General: Lying in bed, no acute distress, comfortable, AAOx3 HEENT: NC, AT CVS: RRR, +S1S2 Lungs: Fair air entry b/l, -w/r/r Abdomen: Soft, ND, NT, Obese Extremities: - Edema, - Calf tenderness LABORATORY DATA: Please see below. IMAGING: CXR 03/31: There is no acute cardiopulmonary disease. ACTIVITY: [As tolerated]. DISCHARGE PLAN: Follow-up with primary care provider and plastic surgery within the next 7 days Remain compliant with treatment plan and medications Return to the ER if you experience any problems DISPOSITION: Home with services DISCHARGE CONDITION: [Stable]. TIME SPENT ON DISCHARGE: 25 minutes Vital Signs/I&Os Vital Signs Date Time Temp Pulse Resp B/P (MAP) Pulse Ox O2 Delivery O2 Flow Rate FiO2 04/01/21 09:02 69 04/01/21 09:01 145/86 04/01/21 06:00 98.5 16 96 Room Air 03/31/21 14:05 2.0 03/31/21 12:10 100 I&O- Last 24 Hours up to 6 AM 04/01/21 06:00 Intake Total 1130 ml Output Total 205 ml Balance 925 ml Laboratory Data Labs 24H Laboratory Tests 2 03/31/21 14:05: Nucleated Red Blood Cells % (auto) 0.0, Anion Gap 8, Glomerular Filtration Rate > 60.0, Calcium Level 8.6, Total Bilirubin 0.4, Aspartate Amino Transf (AST/SGOT) 17, Alanine Aminotransferase (ALT/SGPT) 49, Alkaline Phosphatase 65, Total Creatine Kinase 104, Creatine Kinase MB 2.5, Creatine Kinase MB Relative Index 2.40, Troponin I < 0.02, Total Protein 7.1, Albumin 3.6, Albumin/Globulin Ratio 1.0 04/01/21 05:59: Nucleated Red Blood Cells % (auto) 0.0, Anion Gap 7L, Glomerular Filtration Rate > 60.0, Calcium Level 8.8, Immature Granulocyte % (Auto) 0.3, Neutrophils (%) (Auto) 77.6H, Lymphocytes (%) (Auto) 13.3L, Monocytes (%) (Auto) 8.7H, Eosinophils (%) (Auto) 0.1, Basophils (%) (Auto) 0.0, Neutrophils # (Auto) 6.7, Lymphocytes # (Auto) 1.2L, Monocytes # (Auto) 0.8, Eosinophils # (Auto) 0.0, Basophils # (Auto) 0.0, Magnesium Level 2.0 CBC/BMP Laboratory Tests 03/31/21 14:05 04/01/21 05:59 Discharge Medications Scheduled Amlodipine Besylate (Amlodipine Besylate) 5 Mg Tablet, 5 MG PO DAILY, (Reported) Amoxicillin (Amoxicillin) 500 Mg Capsule, 500 MG PO BID Budesonide/Formoterol Fumarate (Budesonide-Formoterol 160-4.5) 10.2 Gm Hfa.aer.ad, 10.2 GM INH BID, (Reported) Chlorthalidone (Chlorthalidone) 25 Mg Tablet, 25 MG PO DAILY, (Reported) Doxycycline Monohydrate (Doxycycline Monohydrate) 100 Mg Capsule, 100 MG PO BID, (Reported) Losartan Potassium (Losartan Potassium) 100 Mg Tablet, 100 MG PO DAILY, (Reported) Multivitamin (Multivitamins) 1 Each Capsule, 1 CAP PO DAILY, (Reported) Scheduled PRN Albuterol Sulfate (Albuterol Sulfate Hfa) 8.5 Gm Hfa.aer.ad, 2 PUFF INH PRN PRN for DYSPNEA, (Reported) Oxycodone HCl/Acetaminophen (Oxycodone-Acetaminophen 5-325) 1 Each Tablet, 1 TAB PO TIDP PRN for pain Topiramate (Topiramate) 50 Mg Tablet, 50 MG PO PRN PRN for MIGRAINE, (Reported) Allergies Coded Allergies: No Known Allergies (Unverified , 03/31/21) TUAN RIGGS MD Apr 01, 2021 10:16
--- NOTE | 2021-04-01 10:40 | IPNPDOC ---
Subjective General Date Seen: Apr 01, 2021 Subject Chief Complaint/History The patient is a 55-year-old male admitted with a reason for visit of Rhinophyma, Left Nasal Passage Obstruction, Scar. Patient status post left nose reconstruction. Postop day 1. Patient was admitted for observation regarding breathing. Patient wears CPAP machine at home. He had no adverse events overnight. Feeling well this morning. No pain. Ambulating, tolerating diet, no difficulty breathing. Current Medications Current Medications Current Medications Medications (Trade) Dose Ordered Sig/Renato Route PRN Reason Start Time Stop Time Status Last Admin Dose Admin Acetaminophen (Tylenol Tab) 650 mg Q4H PRN PO MILD PAIN or TEMP > 101 03/31/21 13:45 04/01/21 05:48 Amlodipine Besylate (Norvasc) 5 mg DAILY PO 03/31/21 09:00 04/01/21 09:02 Budesonide/ Formoterol Fumarate (Symbicort 160/ 4.5mcg) 1 puff RBID INH 03/31/21 20:00 04/01/21 07:18 Chlorthalidone (Hygroton) 25 mg DAILY PO 03/31/21 09:00 04/01/21 09:02 Docusate Sodium (Colace) 100 mg BID PO 03/31/21 21:00 04/01/21 09:01 Doxycycline Hyclate (Vibramycin) 100 mg BID@0600,1800 PO 03/31/21 18:00 04/01/21 05:06 Fentanyl Citrate (Sublimaze) 25 mcg Q5MP PRN IV PAIN LEVEL 5-10 03/31/21 11:15 03/31/21 13:15 DC Hydromorphone HCl (Dilaudid) 0.2 mg Q5MP PRN IV PAIN LEVEL 4-7 03/31/21 11:15 03/31/21 13:15 DC Lactated Ringer's 1,000 ml @ 100 mls/hr Q10H IV 03/31/21 11:15 03/31/21 13:15 DC Losartan Potassium (Cozaar) 100 mg DAILY PO 03/31/21 09:00 04/01/21 09:01 Magnesium Hydroxide (Milk Of Magnesia) 30 ml DAILY PRN PO CONSTIPATION 03/31/21 13:45 Multivitamins (Theragram-M) 1 tab DAILY PO 04/01/21 09:00 04/01/21 09:01 Ondansetron HCl (ZOFRAN INJection) 4 mg Q4HP PRN IV NAUSEA OR VOMITING 03/31/21 11:15 03/31/21 13:15 DC 03/31/21 13:30 Oxycodone HCl (Roxicodone, Oxyir) 5 mg ASDIRECTED PRN PO PAIN LEVEL 1-4 03/31/21 11:15 03/31/21 13:15 DC Allergies Coded Allergies: No Known Allergies (Unverified , 03/31/21) Objective Physical Examination Examination GENERAL APPEARANCE:Patient seen, laying in bed, awake, alert, and oriented. Comfortable, in no acute distress. SKIN: Warm and moist. HEENT: Normocephalic, atraumatic. [place] palpebral conjunctiva, anicteric sclerae. Lips and mucosa appear moist. Flap is warm, pink, viable. Incision intact with minimal amount of dried blood present. Packing in place left nostril. HEART: No chest wall abnormalities. Regular rate and rhythm with no murmurs appreciated. ABDOMEN: Abdomen is soft, non-tender, non-distended. EXTREMITIES: No edema identified. No calf tenderness. Vital Signs Vital Signs Date Time Temp Pulse Resp B/P (MAP) Pulse Ox O2 Delivery O2 Flow Rate FiO2 04/01/21 09:02 69 04/01/21 09:01 145/86 04/01/21 06:00 98.5 16 96 Room Air 03/31/21 14:05 2.0 03/31/21 12:10 100 I&Os I&O- Last 24 Hours up to 6 AM 04/01/21 06:00 Intake Total 1130 ml Output Total 205 ml Balance 925 ml Laboratory Data Labs 24H Laboratory Tests 2 03/31/21 14:05: Nucleated Red Blood Cells % (auto) 0.0, Anion Gap 8, Glomerular Filtration Rate > 60.0, Calcium Level 8.6, Total Bilirubin 0.4, Aspartate Amino Transf (AST/SGOT) 17, Alanine Aminotransferase (ALT/SGPT) 49, Alkaline Phosphatase 65, Total Creatine Kinase 104, Creatine Kinase MB 2.5, Creatine Kinase MB Relative Index 2.40, Troponin I < 0.02, Total Protein 7.1, Albumin 3.6, Albumin/Globulin Ratio 1.0 04/01/21 05:59: Nucleated Red Blood Cells % (auto) 0.0, Anion Gap 7L, Glomerular Filtration Rate > 60.0, Calcium Level 8.8, Immature Granulocyte % (Auto) 0.3, Neutrophils (%) (Auto) 77.6H, Lymphocytes (%) (Auto) 13.3L, Monocytes (%) (Auto) 8.7H, Eosinophils (%) (Auto) 0.1, Basophils (%) (Auto) 0.0, Neutrophils # (Auto) 6.7, Lymphocytes # (Auto) 1.2L, Monocytes # (Auto) 0.8, Eosinophils # (Auto) 0.0, Basophils # (Auto) 0.0, Magnesium Level 2.0 CBC/BMP Laboratory Tests 03/31/21 14:05 04/01/21 05:59 Impression Status post left nostril reconstruction. Patient stable for discharge. Instructions given. Patient to follow-up with plastic surgery on Tuesday Plan / VTE VTE Prophylaxis Ordered?: Yes DELILAH MALDONADO DO Apr 01, 2021 10:39
== END 2021-04-01 12:15 | disposition home or self-care (01) ==
LOC: M SDC 05:59 → M MS5PR 13:45
PROVIDERS: ADMIT Plastic Surgery Surgery of the Hand; ATTEND Plastic Surgery Surgery of the Hand
DX: J95.89 Other postprocedural complications and disorders of respiratory system, not elsewhere classified (principal); J96.01 Acute respiratory failure with hypoxia; L71.1 Rhinophyma; L90.5 Scar conditions and fibrosis of skin; M95.0 Acquired deformity of nose; I10 Essential (primary) hypertension; G43.909 Migraine, unspecified, not intractable, without status migrainosus; G47.33 Obstructive sleep apnea (adult) (pediatric); E66.9 Obesity, unspecified; K21.9 Gastro-esophageal reflux disease without esophagitis; Z79.899 Other long term (current) drug therapy; J45.909 Unspecified asthma, uncomplicated
CPT/HCPCS: 14060; 36415; 71045; 71046; 80048; 80053; 82550; 82553; 83735; 85025; 85027; 93005; 94640; J0131; J0330; J0690; J1100; J1170; J2250; J2405; J3010; Q9968

== ENCOUNTER → 2021-05-04 | Outpatient (REF) | payer OTHER ==
[~2021-05-04] MED LIST changes: +AMOX500C PO; +OXYC1TAB23 PO
[2021-05-04 13:19] LABS: CHOLESTEROL RISK RATIO 3.564 (<5)
[2021-05-04 14:04] LABS: HEMOGLOBIN A1c 5.3 %
== END ==
LOC: M SFHCADAM 09:50
PROVIDERS: ATTEND Physician Assistant Medical
DX: E78.2 Mixed hyperlipidemia (principal)

== ENCOUNTER → 2022-06-15 | Outpatient (REF) | payer BC ==
[~2022-06-15] MED LIST changes: +DOXY-443 PO; -DOXY1CAP62 PO; +LOSA100T45 PO; -LOSA100T50 PO
[2022-06-15 16:25] LABS: BASO % 0.6 % (0.0-1.0); EOS # 0.1 10^3/uL (0.0-0.5); EOS % 2.4 % (0.0-3.0); HEMATOCRIT 45.2 % (42.0-52.0); HEMOGLOBIN 14.8 g/dl (13.5-17.5); LYMPH # 1.3 10^3/uL (1.5-5.0); LYMPH % 24.9 % (24.0-44.0); MEAN CORPUSCULAR HEMOGLOBIN 28.8 pg (27.0-33.0); MEAN CORPUSCULAR HGB CONC 32.7 g/dl (32.0-36.5); MEAN CORPUSCULAR VOLUME 87.9 fl (80.0-96.0); MONO # 0.5 10^3/uL (0.0-0.8); MONO % 9.5 % (2.0-8.0); NEUTROPHILS # 3.2 10^3/uL (1.5-8.5); NEUTROPHILS % 62.4 % (36.0-66.0); PLATELET COUNT, AUTOMATED 203 10^3/uL (150-450); RED BLOOD COUNT 5.14 10^6/uL (4.30-6.10); WHITE BLOOD COUNT 5.1 10^3/uL (4.0-10.0)
[2022-06-15 17:01] LABS: ALBUMIN 3.9 GM/DL (3.2-5.2); ALT/SGPT 50 U/L (12-78); BILIRUBIN,TOTAL 0.7 MG/DL (0.2-1.0); BLOOD UREA NITROGEN 11 MG/DL (7-18); CALCIUM LEVEL 9.1 MG/DL (8.5-10.1); CARBON DIOXIDE LEVEL 28 MEQ/L (21-32); CHLORIDE LEVEL 101 MEQ/L (98-107); CHOLESTEROL LEVEL 148 MG/DL (<200); CHOLESTEROL RISK RATIO 3.363 (<5); CREATININE FOR GFR 0.73 MG/DL (0.70-1.30); GLOMERULAR FILTRATION RATE > 60.0 (>56); GLUCOSE, FASTING 80 MG/DL (70-100); HDL CHOLESTEROL 44 MG/DL (>40); LDL CHOLESTEROL 88 MG/DL (<100); NON-HDL-C 104 MG/DL; POTASSIUM SERUM 3.7 MEQ/L (3.5-5.1); SODIUM LEVEL 136 MEQ/L (136-145); TOTAL PROTEIN 7.3 GM/DL (6.4-8.2); TRIGLYCERIDES LEVEL 80 MG/DL (<150)
[2022-06-15 17:29] LABS: TOTAL 25(OH) VITAMIN D 27.2 NG/ML (30.0-100.0)
== END ==
LOC: M SFHCADAM 11:25
PROVIDERS: ATTEND Physician Assistant Medical
DX: E78.2 Mixed hyperlipidemia (principal); I10 Essential (primary) hypertension; J45.40 Moderate persistent asthma, uncomplicated

== ENCOUNTER → 2022-06-15 | Outpatient (CLI) | payer BC | LOC: M ADAMS 11:35 | PROVIDERS: ATTEND Physician Assistant Medical | DX: M47.812 Spondylosis without myelopathy or radiculopathy, cervical region (principal); M25.711 Osteophyte, right shoulder; M25.712 Osteophyte, left shoulder; M19.011 Primary osteoarthritis, right shoulder; M19.012 Primary osteoarthritis, left shoulder; M48.02 Spinal stenosis, cervical region; M25.78 Osteophyte, vertebrae ==

== ENCOUNTER → 2022-07-27 | Outpatient (REF) | payer BC ==
[~2022-07-27] MED LIST changes: +AMLO10TA PO; +VITA200016 PO; +VITMTA PO
[2022-07-27 16:23] LABS: HEMATOCRIT 43.2 % (42.0-52.0); HEMOGLOBIN 14.3 g/dl (13.5-17.5); MEAN CORPUSCULAR HEMOGLOBIN 28.6 pg (27.0-33.0); MEAN CORPUSCULAR HGB CONC 33.1 g/dl (32.0-36.5); MEAN CORPUSCULAR VOLUME 86.4 fl (80.0-96.0); PLATELET COUNT, AUTOMATED 186 10^3/uL (150-450); WHITE BLOOD COUNT 7.2 10^3/uL (4.0-10.0)
[2022-07-27 17:21] LABS: BLOOD UREA NITROGEN 11 MG/DL (7-18); CARBON DIOXIDE LEVEL 30 MEQ/L (21-32); CHLORIDE LEVEL 102 MEQ/L (98-107); GLOMERULAR FILTRATION RATE > 60.0 (>56); GLUCOSE, FASTING 88 MG/DL (70-100); POTASSIUM SERUM 3.6 MEQ/L (3.5-5.1); SODIUM LEVEL 139 MEQ/L (136-145)
== END ==
LOC: M SFHCADAM 14:47
PROVIDERS: ATTEND Physician Assistant Medical
DX: Z01.818 Encounter for other preprocedural examination (principal)

== ENCOUNTER → 2022-07-29 | Outpatient (CLI) | payer BC, OTHER | LOC: M LABSMTC 10:16 | PROVIDERS: ATTEND Anesthesiology | DX: Z01.812 Encounter for preprocedural laboratory examination (principal); Z11.52 Encounter for screening for COVID-19 ==

== ENCOUNTER → 2023-05-09 | Outpatient (REF) | payer OTHER ==
[~2023-05-09] MED LIST changes: -LOSA100T45 PO; +LOSA100T46 PO; +TOPI-254 PO; -TOPI50TA9 PO
[2023-05-09 17:08] LABS: BASO % 0.6 % (0.0-1.0); EOS # 0.2 10^3/uL (0.0-0.5); EOS % 3.1 % (0.0-3.0); HEMATOCRIT 44.5 % (42.0-52.0); LYMPH # 1.8 10^3/uL (1.5-5.0); LYMPH % 25.5 % (24.0-44.0); MEAN CORPUSCULAR HEMOGLOBIN 28.8 pg (27.0-33.0); MEAN CORPUSCULAR HGB CONC 33.7 g/dl (32.0-36.5); MEAN CORPUSCULAR VOLUME 85.6 fl (80.0-96.0); MONO # 0.5 10^3/uL (0.0-0.8); MONO % 6.9 % (2.0-8.0); NEUTROPHILS # 4.4 10^3/uL (1.5-8.5); NEUTROPHILS % 63.5 % (36.0-66.0); PLATELET COUNT, AUTOMATED 204 10^3/uL (150-450); WHITE BLOOD COUNT 6.9 10^3/uL (4.0-10.0)
[2023-05-09 17:31] LABS: BLOOD UREA NITROGEN 10 MG/DL (9-23); CALCIUM LEVEL 9.3 MG/DL (8.5-10.1); CARBON DIOXIDE LEVEL 27 MMOL/L (20-31); CHLORIDE LEVEL 105 MMOL/L (98-107); CREATININE FOR GFR 0.75 MG/DL (0.70-1.30); GLOMERULAR FILTRATION RATE > 60.0 (>56); GLUCOSE, FASTING 118 MG/DL (60-100); POTASSIUM SERUM 3.7 MMOL/L (3.5-5.1); SODIUM LEVEL 141 MMOL/L (136-145)
== END ==
LOC: M SFHCADAM 14:39
PROVIDERS: ATTEND Physician Assistant Medical
DX: Z01.818 Encounter for other preprocedural examination (principal); L91.0 Hypertrophic scar

== ENCOUNTER → 2023-05-09 | Outpatient (CLI) | payer OTHER | LOC: M ADAMS 14:55 | PROVIDERS: ATTEND Physician Assistant Medical | DX: Z01.818 Encounter for other preprocedural examination (principal); L91.0 Hypertrophic scar ==

== ENCOUNTER 2023-05-31 06:50 | Day surgery (SDC) | payer OTHER ==
[~2023-05-31] VITALS: Ht 172.7 cm; Wt 114.2 kg
[~2023-05-31 06:50] MED LIST changes: +METO1TAB32 PO; +TREL1AER INH; +ceFAZolin SOD 2 GM in IV 1 EA IV ONE
[2023-05-31] MEDS ORDERED: LIDOCAINE 2% 100MG/5ML SDV (FOR ANES.) As Ordered ONE (07:25)
[2023-05-31] MEDS ORDERED: propofoL 200 MG/20 ML VIAL As Ordered ONE ×2 (07:25→08:30)
[2023-05-31] MEDS ORDERED: ONDANSETRON 4MG 2ML VIAL As Ordered ONE (07:25)
[2023-05-31] MEDS ORDERED: MIDAZOLAM INJ 2MG/2ML VIAL As Ordered ONE (07:26)
[2023-05-31] MEDS ORDERED: fentaNYL 100 MCG/2 ML INJECTION As Ordered ONE (07:26)
[2023-05-31] MEDS ORDERED: LR 1,000 ML IV SCH ×2 (07:35→11:40)
[2023-05-31] MEDS ORDERED: LIDOCAINE 2% W/EPINEPHRINE 20ML VIAL **PRES FREE As Ordered ONE (08:06)
[2023-05-31] MEDS ORDERED: LIDOCAINE W/EPINEPHRINE 1% 20ML VIAL As Ordered ONE (08:06)
[2023-05-31] MEDS ORDERED: BACITRACIN OINTMENT 30GM TUBE As Ordered ONE (08:06)
[2023-05-31] MEDS ORDERED: POVIDONE-IODINE 5% OPHTH PREP SOL 30ML As Ordered ONE (08:11)
[2023-05-31] MEDS ORDERED: ROCURONIUM BROMIDE 50MG/5ML VIAL As Ordered ONE (08:30)
[2023-05-31] MEDS ORDERED: ePHEDrine SULFATE 25 MG/5 ML(5MG/ML) SYRINGE As Ordered ONE ×2 (09:08→09:45)
[2023-05-31] MEDS ORDERED: LACRILUBE (AKWA TEARS) OPHTH OINT 3.5GM As Ordered ONE (09:08)
[2023-05-31] MEDS ORDERED: ACETAMINOPHEN 1000MG 100ML IV BAG As Ordered ONE (09:08)
[2023-05-31] MEDS ORDERED: OXYMETAZOLINE 0.05% NASAL SPRAY (AFRIN) As Ordered ONE (09:08)
[2023-05-31] MEDS ORDERED: SUGAMMADEX SODIUM 500 MG/5 ML VIAL (BRIDION) As Ordered ONE (09:08)
[2023-05-31] MEDS ORDERED: HYDROMORPHONE HCL 0.5 MG/ 0.5 ML SYRINGE IV PRN (11:40)
[2023-05-31] MEDS ORDERED: fentaNYL 100 MCG/2 ML INJECTION IV PRN (11:40)
[2023-05-31] MEDS ORDERED: ONDANSETRON 4MG 2ML VIAL IV PRN (11:40)
[2023-05-31] MEDS ORDERED: oxyCODONE 5MG TAB PO PRN (11:40)
[2023-05-31] MEDS ORDERED: IBUPROFEN 100MG 5ML ORAL SUSP UDC PO ONE (13:55)
[2023-05-31] MEDS ORDERED: IBUPROFEN 400MG TAB PO ONE (14:00)
[2023-05-31 15:10] VITALS: BP 148/84; TEMP 97.2; O2SAT 96
== END 2023-05-31 15:25 | disposition home or self-care (01) ==
LOC: M SDC 06:50
PROVIDERS: ATTEND Plastic Surgery Surgery of the Hand
DX: L91.0 Hypertrophic scar (principal); L90.5 Scar conditions and fibrosis of skin; M95.0 Acquired deformity of nose; L71.9 Rosacea, unspecified; I10 Essential (primary) hypertension; J45.909 Unspecified asthma, uncomplicated; Z79.899 Other long term (current) drug therapy
CPT/HCPCS: 13152; 15630; 88302; J0131; J0690; J1100; J2250; J2405; J3010